=== PATIENT | female | born 1950 | race Caucasian/White ===

== ENCOUNTER 2021-07-01 11:53 | Day surgery (SDC) | payer MEDICARE, SELFPAY ==
[2021-06-26 10:51] VITALS: BMI 19.1
--- NOTE | 2021-06-30 08:35 | HO.ANESPROP2 ---
Documented by User: Josefa Perales NP 06/30/21 08:36 HPI - Anesthesia Eval Consult details Narrative: 71yo F for Upper Endoscopy, Ileoscopy via Stoma PMFSH Past Medical History Medical History (Updated 07/01/21 @ 12:20 by Nae Galvan, [place]) C. difficile enteritis Elevated cholesterol Fistula Fistula History of COVID-19 Neuropathy Osteoporosis Renal insufficiency Ulcerative colitis Surgical History Surgical History (Updated 06/30/21 @ 08:19 by Joy Rao RN) History of nasal surgery Hx of appendectomy Hx of ileostomy Social History Social History Patient Tobacco Use Status: Never used Tobacco Use of substances other than those prescribed or required for medical reasons: No Advance Directives: No (unknown-VM message left) Advance Directives Information Provided: Yes Advance Directives on File: No Meds Allergies Allergy/AdvReac Type Severity Reaction Status Date / Time lactose Allergy Severe Diarrhea Verified 07/01/21 12:14 iron Allergy Gastrointestinal Verified 07/01/21 12:14 Upset trazodone AdvReac Severe Nausea Verified 07/01/21 12:14 Home Medications Medication Instructions Recorded Confirmed Last Taken Type calcium carbonate 500 mg-vitamin 1 tab PO DAILY 06/26/21 06/26/21 Unknown History D3 10 mcg (400 unit) tablet (Calcium 500 + D) duloxetine 20 mg capsule,delayed 20 mg PO BEDTIME 06/26/21 06/26/21 Unknown History release sprinkle fenofibrate 120 mg tablet 120 mg PO DAILY 06/26/21 06/26/21 Unknown History loperamide 2 mg capsule 2 mg PO Q4H PRN 06/26/21 06/26/21 Unknown History multivitamin 1 tab PO DAILY 06/26/21 06/26/21 Unknown History pantoprazole 40 mg tablet,delayed 40 mg PO DAILY 06/26/21 06/26/21 Unknown History release topiramate 25 mg tablet 25 mg PO DAILY 06/26/21 06/26/21 Unknown History Exam Exam Date and Time: June 30, 2021 0835 Height,Weight and Vital Signs: Height 5 ft Weight 44.452 kg Assessment and Plan Assessment Anesthesia Assessment: Chart Reviewed Documented by User: Hetal Card MD 07/01/21 13:10 [facility] Past Medical History Medical History (Updated 07/01/21 @ 12:20 by Nae Galvan, [place]) C. difficile enteritis Elevated cholesterol Fistula Fistula History of COVID-19 Neuropathy Osteoporosis Renal insufficiency Ulcerative colitis Family History Family history of problems with anesthesia: No Surgical History Surgical History (Updated 06/30/21 @ 08:19 by Joy Rao, [place]) History of nasal surgery Hx of appendectomy Hx of ileostomy History of Problems with Anesthesia: No Social History Social History Patient Tobacco Use Status: Never used Tobacco Use of substances other than those prescribed or required for medical reasons: No Advance Directives: No (unknown-VM message left) Advance Directives Information Provided: Yes Advance Directives on File: No Meds Allergies Allergy/AdvReac Type Severity Reaction Status Date / Time lactose Allergy Severe Diarrhea Verified 07/01/21 12:14 iron Allergy Gastrointestinal Verified 07/01/21 12:14 Upset trazodone AdvReac Severe Nausea Verified 07/01/21 12:14 Home Medications Medication Instructions Recorded Confirmed Last Taken Type calcium carbonate 500 mg-vitamin 1 tab PO DAILY 06/26/21 06/26/21 Unknown History D3 10 mcg (400 unit) tablet (Calcium 500 + D) duloxetine 20 mg capsule,delayed 20 mg PO BEDTIME 06/26/21 06/26/21 Unknown History release sprinkle fenofibrate 120 mg tablet 120 mg PO DAILY 06/26/21 06/26/21 Unknown History loperamide 2 mg capsule 2 mg PO Q4H PRN 06/26/21 06/26/21 Unknown History multivitamin 1 tab PO DAILY 06/26/21 06/26/21 Unknown History pantoprazole 40 mg tablet,delayed 40 mg PO DAILY 06/26/21 06/26/21 Unknown History release topiramate 25 mg tablet 25 mg PO DAILY 06/26/21 06/26/21 Unknown History Exam Height,Weight and Vital Signs: Height 5 ft Weight 44.452 kg Vital Signs Temp Pulse Resp BP Pulse Ox 07/01/21 12:34 98.6 F 68 16 105/68 97 Pertinent Lab Results Pertinent Lab Results: 06/24/20@ [facility] [place]: Na 138 K 4.0 Cl 101 HCO3 23 BUN 36 Cr 1.8 Glu 81 GFR 28 Airway Mallampati Class: II TM Dist: >3cm Neck ROM: Full Loose/Missing/Broken Teeth: No Heart: RRR Lungs: CTAB Assessment and Plan Assessment Anesthesia Assessment: Anesthesia Plan Discussed Final Anesthetic Review Family History of Problems with Anesthesia: No History of Problems with Anesthesia: No NPO: Yes ASA Class: III Final Preanesthetic Review: No Changes in Pt Med Stat, Meds/Allgs Chart Reviewed, Consent Obtained/Reviewed and Anes Risks/Benef Reviewed Patient Risk: Intermediate Procedure Risk: Low Assessment/Block/Sedation in SS: Assess/Block/Sedation-SS Anesthetic Plan Anesthetic Plan: MAC: Disposition: Standard PACU
[2021-07-01 12:34] VITALS: BP 105/68; PULSE 68; RESP 16; TEMP 37; O2SAT 97
--- NOTE | 2021-07-01 13:14 | MHC.SHP ---
Pre-Procedural Eval Section A Date of Service: 07/01/21 The patient is an INPATIENT: No Changes since office visit: No Cold of Flu in the past 2 weeks, No New Medical Problems, No Changes in Medication and No Patient answered all questions The History & Physical has been completed within 30 days and I have reviewed it.: Yes Section B Chief Complaint: noninfective gastroenteritis and colitis Allergies: Allergies Allergy/AdvReac Type Severity Reaction Status Date / Time lactose Allergy Severe Diarrhea Verified 07/01/21 12:14 iron Allergy Gastrointestinal Verified 07/01/21 12:14 Upset trazodone AdvReac Severe Nausea Verified 07/01/21 12:14 Plan I have reviewed the history and physical and performed a pertinent physical examination on my patient. No changes have occurred unless specified.
[2021-07-01] MEDS: 0.9 % Sodium Chloride 1,000 ML 100 ML IVCONT (13:15)
--- NOTE | 2021-07-01 13:56 | PM.OP ---
Brief Operative Note Date of Service: 07/01/21 Pre-op diagnosis: inflammatory bowel disease Post-op diagnosis: other (normal EGD and Ileoscopy) Surgeon: Dexter Ruiz Anesthesia: MAC Was an Victims Advocate Clerk/Specialist used for this Procedure?: No Estimated blood loss (mL): 2 Pathology: other (bxs antrum, egj, duodenum, small bowel) Condition: stable Disposition: PACU
[2021-07-01 13:57] VITALS: BP 98/61; PULSE 81; RESP 20; TEMP 36.8; O2SAT 100
--- NOTE | 2021-07-01 14:02 | PC.NURSE ---
DR. RAMÍREZ AT BEDSIDE TO EVALUATE PATIENT REVIEW PROCEDURE
[2021-07-01 14:11] VITALS: BP 122/61; PULSE 67; RESP 20; TEMP 36.3; O2SAT 100
[2021-07-01 14:26] VITALS: BP 126/62; PULSE 63; RESP 20; O2SAT 98
--- NOTE | 2021-07-02 00:47 | OP_ITS ---
cc: Era Powell MD~ SURGEON: Dexter Ruiz MD INDICATIONS: Inflammatory bowel disease, status post colectomy in J-pouch with resultant diverting ileostomy. PREOPERATIVE DIAGNOSIS: POSTOPERATIVE DIAGNOSIS: PROCEDURE PERFORMED: 1. Upper endoscopy with biopsy. 2. Ileoscopy with biopsy. ESTIMATED BLOOD LOSS: COMPLICATIONS: ANESTHESIA: ASSISTANTS: SPECIMENS: MEDICATIONS: Monitored anesthesia care. DESCRIPTION OF PROCEDURE: History and physical performed. The risks and benefits of the procedure were explained to the patient. Informed consent was obtained. The patient was placed in the left lateral decubitus position. The Olympus video gastroscope was introduced into the esophagus, stomach, and duodenum. Examination was performed. The scope was removed. She was repositioned for ileoscopy and turned flat. A digital exam of the ileostomy showed no stricturing at the site. Next, the Olympus pediatric video colonoscope was introduced into the ileostomy and advanced to 20 cm in both the afferent and efferent limbs. Examination was performed. The scope was removed. She tolerated the procedure well and was returned to recovery in stable condition. FINDINGS: Upper Endoscopy: Esophagus: The esophagus was normal. Biopsies were obtained from the EG junction. Stomach: The stomach showed no evidence of masses, ulcers, or polyps. Biopsies were obtained from the antrum. The mucosa appeared normal. Duodenum: The bulb and second portion were normal. Biopsies were obtained from the second portion. Ileoscopy: The mucosa of the ileostomy appeared within normal limits without evidence of ulceration, fissuring, or Crohn disease. Biopsies were obtained from the small bowel randomly. IMPRESSION: 1. Normal upper endoscopy. 2. Normal ileoscopy. RECOMMENDATIONS: Follow up the biopsy results. MD DEBBIE Gomez/SAMANTHA / [id number] MTDD
== END 2021-07-01 16:00 | disposition home or self-care (01) ==
PROVIDERS: PCP Internal Medicine; Visit Provider Internal Medicine Gastroenterology
PROC: 0DJ08ZZ Inspection of Upper Intestinal Tract, Via Natural or Artificial Opening Endoscopic (ICD-10-PCS; CPT 43235; principal; 2021-07-01 13:00)
DX: K52.9 Noninfective gastroenteritis and colitis, unspecified (principal); Z93.2 Ileostomy status; G62.9 Polyneuropathy, unspecified; N28.9 Disorder of kidney and ureter, unspecified; E78.5 Hyperlipidemia, unspecified; M81.0 Age-related osteoporosis without current pathological fracture; Z90.49 Acquired absence of other specified parts of digestive tract; Z86.16 Personal history of COVID-19; Z79.899 Other long term (current) drug therapy
CPT/HCPCS: 43239; 44382; 88305; 88342

== ENCOUNTER → 2021-10-05 10:59 | Outpatient (BNVA) | payer MEDICARE, SELFPAY | PROVIDERS: PCP Internal Medicine; Referring Provider Internal Medicine; Visit Provider Surgery | DX: K94.19 Other complications of enterostomy (principal) | CPT/HCPCS: 99202 ==

== ENCOUNTER 2023-10-25 09:47 | Day surgery (SDC) | payer MEDICARE, SELFPAY ==
[2023-10-24 06:52] VITALS: BMI 22.5
--- NOTE | 2023-10-24 12:35 | HO.ANESPROP2 ---
Documented by User: Josefa Perales NP 10/24/23 14:08 HPI - Anesthesia Eval Consult details Narrative: 73yo F for Endoscopy of the J pouch PMFSH Active Problems Active Problems: All Active Problems Intestinal stoma prolapse (Acute) Parastomal hernia (Acute) Past Medical History Medical History (Updated 10/25/23 @ 10:00 by Celestina Burr RN) Heart murmur COVID-19 Hyperlipidemia CKD (chronic kidney disease) stage 3, GFR 30-59 ml/min Intestinal stoma prolapse Parastomal hernia Fistula Fistula Renal insufficiency Neuropathy History of COVID-19 Ulcerative colitis Osteoporosis Elevated cholesterol C. difficile enteritis Family History Family History Mother Breast cancer Sister Breast cancer Father Lymphoma Other CVD (cardiovascular disease) Family history of problems with anesthesia: No Surgical History Surgical History (Updated 10/24/23 @ 06:47 by Aliza Hawthorne RN) Hx of total colectomy History of esophagogastroduodenoscopy (EGD) History of nasal surgery Hx of appendectomy Hx of ileostomy History of Problems with Anesthesia: No Social History Social History Patient Tobacco Use Status: Former Tobacco user Meds Allergies Allergy/AdvReac Type Severity Reaction Status Date / Time lactose Allergy Severe Diarrhea Verified 10/05/21 11:16 iron Allergy Gastrointestinal Verified 10/05/21 11:16 Upset trazodone AdvReac Severe Nausea Verified 10/05/21 11:16 Home Medications ?Medication ?Instructions ?Recorded ?Confirmed ?Last Taken ?Type calcium carbonate 500 mg-vitamin 1 tab PO DAILY 06/26/21 10/24/23 Unknown History D3 10 mcg (400 unit) tablet (Calcium 500 + D) duloxetine 20 mg capsule,delayed 20 mg PO BEDTIME 06/26/21 10/24/23 Unknown History release sprinkle loperamide 2 mg capsule 2 mg PO Q4H PRN Diarrhea 06/26/21 10/24/23 Unknown History multivitamin 1 tab PO DAILY 06/26/21 10/24/23 Unknown History pantoprazole 40 mg tablet,delayed 40 mg PO DAILY 06/26/21 10/24/23 Unknown History release topiramate 25 mg tablet 25 mg PO DAILY 06/26/21 10/24/23 Unknown History fenofibrate micronized 134 mg 134 mg PO DAILY 10/24/23 10/24/23 Unknown History capsule Exam Height,Weight and Vital Signs: Height 5 ft Weight 52.163 kg Pertinent Lab Results Pertinent Lab Results: BMP and CBC 09/2023 from outside facility ok Assessment and Plan Assessment Anesthesia Assessment: Chart Reviewed Final Anesthetic Review Family History of Problems with Anesthesia: No History of Problems with Anesthesia: No Documented by User: Irma Li MD 10/25/23 10:40 [facility] Past Medical History Medical History (Updated 10/25/23 @ 10:00 by Celestina Burr RN) Heart murmur COVID-19 Hyperlipidemia CKD (chronic kidney disease) stage 3, GFR 30-59 ml/min Intestinal stoma prolapse Parastomal hernia Fistula Fistula Renal insufficiency Neuropathy History of COVID-19 Ulcerative colitis Osteoporosis Elevated cholesterol C. difficile enteritis Family History Family History Mother Breast cancer Sister Breast cancer Father Lymphoma Other CVD (cardiovascular disease) Surgical History Surgical History (Updated 10/24/23 @ 06:47 by Aliza Hawthorne, [place]) Hx of total colectomy History of esophagogastroduodenoscopy (EGD) History of nasal surgery Hx of appendectomy Hx of ileostomy Social History Social History Patient Tobacco Use Status: Former Tobacco user Meds Allergies Allergy/AdvReac Type Severity Reaction Status Date / Time lactose Allergy Severe Diarrhea Verified 10/05/21 11:16 iron Allergy Gastrointestinal Verified 10/05/21 11:16 Upset trazodone AdvReac Severe Nausea Verified 10/05/21 11:16 Home Medications ?Medication ?Instructions ?Recorded ?Confirmed ?Last Taken ?Type calcium carbonate 500 mg-vitamin 1 tab PO DAILY 06/26/21 10/24/23 Unknown History D3 10 mcg (400 unit) tablet (Calcium 500 + D) duloxetine 20 mg capsule,delayed 20 mg PO BEDTIME 06/26/21 10/24/23 Unknown History release sprinkle loperamide 2 mg capsule 2 mg PO Q4H PRN Diarrhea 06/26/21 10/24/23 Unknown History multivitamin 1 tab PO DAILY 06/26/21 10/24/23 Unknown History pantoprazole 40 mg tablet,delayed 40 mg PO DAILY 06/26/21 10/24/23 Unknown History release topiramate 25 mg tablet 25 mg PO DAILY 06/26/21 10/24/23 Unknown History fenofibrate micronized 134 mg 134 mg PO DAILY 10/24/23 10/24/23 Unknown History capsule Exam Airway Mallampati Class: II TM Dist: >3cm Neck ROM: Full Loose/Missing/Broken Teeth: No Heart: RRR Lungs: CTA Assessment and Plan Assessment Anesthesia Assessment: Anesthesia Plan Discussed Final Anesthetic Review NPO: Yes ASA Class: III Final Preanesthetic Review: Meds/Allgs Chart Reviewed, Consent Obtained/Reviewed and Anes Risks/Benef Reviewed Patient Risk: Intermediate Procedure Risk: Low Anesthetic Plan Anesthetic Plan: MAC: Disposition: Standard PACU
[2023-10-25 09:56] VITALS: BMI 22.7
[2023-10-25 09:58] VITALS: BP 139/88; PULSE 82; RESP 16; TEMP 36.1; O2SAT 97
[2023-10-25] MEDS: Lactated Ringers 1,000 ML 100 ML IVCONT (10:25)
--- NOTE | 2023-10-25 10:36 | MHC.SHP ---
Pre-Procedural Eval Section A - 24 Hr Update-Section A only Date of Service: 10/25/23 Section B - Complete if H&P > 30 days Chief Complaint: Ulcerative (chronic) pancolitis with other complic Details of Present Illness: see H&P No changes Relevant Family History (Specify if Yes): No Relevant Social History: None Present Medications: see Short Stay Collaborative assessment Medical History: No relevant PMH History of Previous Operations: No relevant previous surgery Allergies: Allergies Allergy/AdvReac Type Severity Reaction Status Date / Time lactose Allergy Severe Diarrhea Verified 10/05/21 11:16 iron Allergy Gastrointestinal Verified 10/05/21 11:16 Upset trazodone AdvReac Severe Nausea Verified 10/05/21 11:16 Review of Systems Sugical H&P ROS: Negative: Constitution, Cardiovascular, Respiratory, Neurological, Psychiatric, Hem-Onc, Allergic/Immunologic, Gastrointestinal, Genitourinary, Musculoskeletal, Integumentary, Endocrine and Eyes/Ears/Nose/Throat Exam Surgical H&P Exam: Normal: HEENT, Normal: Heart, Normal: Lungs, Normal: Extremities, Normal: Abdomen, Normal: Skin and Normal: Neurological Plan Diagnosis/Plan: Unchanged I have reviewed the history and physical and performed a pertinent physical examination on my patient. No changes have occurred unless specified. Time Spent With Patient Time: Total time managing care of this patient today ____ minutes.
[2023-10-25 11:40] VITALS: BP 97/60; PULSE 55; RESP 18; TEMP 36.2; O2SAT 100
[2023-10-25 11:55] VITALS: BP 123/54; PULSE 59; RESP 17; TEMP 36.1; O2SAT 97
--- NOTE | 2023-10-25 12:34 | OP_ITS ---
DATE OF SERVICE: 10/25/2023 SURGEON: Dexter Ruiz MD INDICATIONS: Ulcerative colitis with history of J-pouch and ileostomy. PREOPERATIVE DIAGNOSIS: POSTOPERATIVE DIAGNOSIS: PROCEDURE PERFORMED: Ileoscopy of stoma and J-pouch. ESTIMATED BLOOD LOSS: COMPLICATIONS: ANESTHESIA: Monitored anesthesia care. ASSISTANTS: SPECIMENS: DESCRIPTION OF PROCEDURE: A history and physical was performed. The risks and benefits of the procedure were explained to the patient and informed consent was obtained. The patient was placed in the supine position. The ileostomy was examined and appeared healthy. The small finger was used to digitally examine the ileostomy. Next, the Olympus pediatric video colonoscope was introduced into the ileostomy and advanced to approximately 20 cm. Examination was performed and the scope was removed. The gastroscope was then inserted into the ileostomy and examined for about 20 cm in both directions afferent and efferent. Biopsies were obtained from the small bowel, which appeared normal. Next, the patient was placed in the left lateral decubitus position. Digital rectal examination with the small finger showed anal stenosis. The seton was identified and was not manipulated. The video gastroscope was introduced into the rectum and advanced to approximately 35 cm, where the diverting ileostomy was encountered. Next, the scope was advanced into the afferent limb of the diverting ileostomy for another 15 cm. Examination was performed and the scope was removed. She tolerated the procedure well and was returned to recovery area in stable condition. FINDINGS: The small bowel in the vicinity of the ileostomy appeared normal. The J-pouch itself did show some inflammatory changes consistent with diversion ileitis. Findings included erythema, mild edema, and loss of vascular pattern. No mass lesion was identified. The small bowel from the diverting ileostomy to the J-pouch showed fairly normal-appearing small bowel until the last 10 cm of the J-pouch, where there was inflammatory change as described above. Biopsies were obtained from throughout the small intestine. Retroflexed examination showed surgical changes from the J-pouch, but was otherwise normal. IMPRESSION: 1. Normal diverting ileostomy. 2. J-pouch with mild inflammatory changes, possible diverting ileitis. RECOMMENDATION: Follow up the biopsy results. MD DEBBIE Gomez/SAMANTHA / [id number] [facility]
== END 2023-10-25 12:53 | disposition home or self-care (01) ==
PROVIDERS: PCP Internal Medicine; Visit Provider Internal Medicine Gastroenterology
PROC: 0DJ08ZZ Inspection of Upper Intestinal Tract, Via Natural or Artificial Opening Endoscopic (ICD-10-PCS; CPT 43235; principal; 2023-10-25 11:30)
DX: K51.018 Ulcerative (chronic) pancolitis with other complication (principal); K91.858 Other complications of intestinal pouch; Y83.2 Surgical operation with anastomosis, bypass or graft as the cause of abnormal reaction of the patient, or of later complication, without mention of misadventure at the time of the procedure; Y92.9 Unspecified place or not applicable; K62.4 Stenosis of anus and rectum; N18.32 Chronic kidney disease, stage 3b; Z79.899 Other long term (current) drug therapy; Z93.2 Ileostomy status
CPT/HCPCS: 44382; 45330; 88305; J2704